=== PATIENT | female | born 2000 | race Two or more races ===

== ENCOUNTER 2021-08-24 11:57 | Emergency (ER) | payer MEDICAID, OTHER ==
[~2021-08-24] VITALS: Ht 160 cm; Wt 45.4 kg
[2021-08-24] MEDS ORDERED: SODIUM CHLORIDE 0.9% 1,000 ML IV ONE (12:15)
[2021-08-24 13:20] LABS: Hematocrit 38.4 % (36.0-46.0); Hemoglobin 13.4 g/dL (12.2-16.2); Mean Corpuscular Hemoglobin 28.9 pg (28.0-32.0); Mean Corpuscular Hgb Conc. 34.8 g/dL (32.0-36.0); Mean Corpuscular Volume 83.1 fL (80.0-100.0); Red Blood Cells 4.62 10^6/uL (4.0-5.20); Red Cell Distribution Width 12.8 % (11.8-14.3); White Blood Cell 8.6 10^3/uL (4.4-10.8)
[2021-08-24 13:24] LABS: Band Neutrophils % (manual) 0; Basophils % (manual) 0 (0.0-2.0); Blast Cells 0; Eosinophils % (manual) 0 (0-7); Metamyelocytes % 0; Myelocytes % 0; Promyelocytes % 0; Reactive Lymphocytes 0
[2021-08-24 13:40] LABS: Albumin 3.8 g/dL (3.4-5.0); BUN/Creatinine Ratio 11.8; Calcium 8.5 mg/dL (8.5-10.1); Lymphocytes % (manual) 4 (10.0-50.0); Monocytes % (manual) 2 (0-12); Potassium 3.6 mmol/L (3.5-5.1)
[2021-08-24 13:44] LABS: Bilirubin, Total 0.6 mg/dL (0.2-1.0); Total Protein 7.3 g/dL (6.4-8.2)
[2021-08-24 14:33] LABS: Urine Bacteria NONE SEEN /hpf (None Seen); Urine Blood Negative /uL (Negative); Urine Mucus FEW (None Seen); Urine WBC 3 /hpf (0 - 5)
[2021-08-24 18:00] VITALS: BP 102/60
== END 2021-08-24 18:57 | disposition home or self-care (01) ==
LOC: EDBD 11:57 → ER 11:57
DX: R55 Syncope and collapse (principal)
CPT/HCPCS: 36415; 70450; 80053; 81001; 82962; 84484; 85007; 85027; 93005; 96360; 96361; 99285; J7030

== ENCOUNTER 2024-04-16 01:44 | Emergency (ER) | payer MEDICAID ==
[~2024-04-16] VITALS: Ht 160 cm; Wt 45.0 kg
--- NOTE | 2024-04-16 03:04 | ED.PDOC ---
Eye-HPI HPI Comments THIS IS A 23-YEAR-OLD FEMALE PRESENTS TO THE ED VIA EMS CHIEF COMPLAINT COLD- LIKE SYMPTOMS X2 HOURS. PATIENT COMPLAINING OF THROAT PAIN, THROAT SWELLING, NASAL DRAINAGE. SHE EXPRESSES CONCERNS ABOUT HER THROAT SWELLING. SHE DOES REPORT HISTORY OF ANXIETY HAS BEEN ON FLUOXETINE X4 MONTHS. SHE DOES FOLLOW UP WITH COGNITIVE BEHAVIORAL THERAPY WITH HER PSYCHOLOGIST. SHE DENIES CHEST PAIN, DIFFICULTY BREATHING, SHORTNESS OF BREATH, CHEST PAIN, FEVERS, OR CHILLS. Chief Complaint: Flu like Time Seen by MD: 02:34 Reviewed Notes: Nurses Notes, Biomass Plant Manager Notes, Medications, Allergies Allergies: Coded Allergies: No Known Drug Allergy (Verified Allergy, Unknown, 08/24/21) Mode of Arrival: Ambulatory Past Medical History PAST MEDICAL HISTORY: Anxiety, Denies Surgical History: Denies all surgeries FIRER PORTABLE BOILER History: No Pertinent FIRER PORTABLE BOILER History Social History Smoker: Non-Smoker Alcohol: Denies ETOH Use Drugs: Denies Drug Use Constitutional: denies: chills, diaphoresis, fatigue, fever, malaise, sweats, weakness, others EENTM: reports: nasal discharge, throat pain, throat swelling; denies: blurred vision, double vision, ear bleeding, ear discharge, ear drainage, ear pain, ear ringing, eye pain, eye redness, hearing loss, mouth pain, mouth swelling, nose bleeding, nose congestion, nose pain, photophobia, tearing, voice changes, others Respiratory: denies: cough, hemoptysis, orthopnea, SOB at rest, shortness of breath, SOB with excertion, stridor, wheezing, others Cardiovascular: denies: chest pain, dizzy spells, diaphoresis, Dyspnea on exertion, edema, irregular heart beat, left arm pain, lightheadedness, palpitations, PND, syncope, others Gastrointestinal: denies: abdomen distended, abdominal pain, blood streaked bowels, constipated, diarrhea, dysphagia, difficulty swallowing, hematemesis, me rebeca, nausea, poor appetite, poor fluid intake, rectal bleeding, rectal pain, vomiting, others Genitourinary: denies: abnormal vagina bleeding, burning, dyspareunia, dysuria, flank pain, frequency, hematuria, incontinence, pain, , vagina discharge, urgency, others Neurological: denies: dizziness, fainting, headache, left sided numbness, left sided weakness, numbness, paresthesia, pre-existing deficit, right sided numbness, right sided weakness, seizure, speech problems, tingling, tremors, weakness, others Musculoskeletal: denies: back pain, gout, joint pain, joint swelling, muscle pain, muscle stiffness, neck pain, others Integumetry: denies: bruises, change in color, change in hair/nails, dryness, laceration, lesions, lumps, rash, wounds, others Allergic/Immunocompromised: denies: Difficulty Healing, Frequent Infections, Hives, Itching, others Hematologic/Lymphatic: denies: anemia, blood clots, easy bleeding, easy bruising, swollen glands, others Endocrine: denies: excessive hunger, excessive sweating, excessive thirst, excessive urination, flushing, intolerance to cold, intolerance to heat, unexplained weight gain, unexplained weight loss, others Psychiatric: denies: anxiety, bipolar disorder, depression, hopeless, panic disorder, schizophrenia, sleepless, suicidal, others Physical Exam General Appearance: No Apparent Distress, Normal HEENT: Normal ENT Inspection, Pharynx Normal, TMs Normal Neck: Full Range of Motion, Non-Tender Respiratory: Lungs Clear, No Accessory Muscle Use, No Respiratory Distress, Normal Breath Sounds Cardiovascular: No Murmur, Normal Peripheral Pulses, Regular Rate/Rhythm Breast Exam: Deferred Gastrointestinal: Non Tender, Soft Genitalia: Deferred Pelvic: Deferred Rectal: Deferred Extremities: Normal range of motion Musculoskeletal : Apperance: Normal Neurologic: Alert, ground hand II-XII nml as Tested, No Motor Deficits, Normal Affect, Normal Mood, No Sensory Deficits Cerebellar Function: Normal Reflexes: Normal Skin: Dry, Normal Color, Warm Lymphatic: No Adenopathy Was a procedure done? Was a procedure done?: No EENT DIFF Eye: N/A Sore Throat: Viral Pharyngitis X-Ray, Labs, Meds, VS Vital Signs Date Time Temp Pulse Resp B/P (MAP) Pulse Ox O2 Delivery O2 Flow Rate FiO2 04/16/24 01:44 99.2 94 20 113/73 (86) 99 X-Ray, Labs, Meds, VS Comment LIKELY ACUTE NASAL PHARYNGITIS. ADVISED ON [id number] RELIEF MEASURES. ADVISED TO FOLLOW UP WITH PCP IN 2-3 DAYS NECESSARY. ADVISED TO RETURN TO THE ER FOR DIFFICULTY BREATHING, SHORTNESS OF BREATH DIFFICULTY SWALLOWING, HIGH FEVERS OR ANY CONCERNING SYMPTOMS. PATIENT AGREES WITH DISCHARGE PLAN OF CARE. Time of 1ST Reevaluation: 03:04 Reevaluation 1ST: Improved Patient Education/Counseling: Diagnosis, Treatment, Prognosis, Need For Follow Up Family Education/Counseling: No Family Present Departure 1 Departure Time of Disposition: 03:04 Impression: Primary Impression: Acute nasopharyngitis [common cold] Disposition: 01 HOME / SELF CARE / HOMELESS Condition: Stable Discharged With: Self Critical Care Note Critical Care Time?: No Stability Stability form required: GEMINI Blank Apr 16, 2024 03:04
[2024-04-16 03:15] VITALS: BP 100/63; PULSE 88; RESP 17; TEMP 98.7; O2SAT 99
== END 2024-04-16 03:04 | disposition home or self-care (01) ==
LOC: EDBD 01:44 → ER 01:44
DX: J00 Acute nasopharyngitis [common cold] (principal); F41.9 Anxiety disorder, unspecified

== ENCOUNTER 2024-05-18 14:51 | Emergency (ER) | payer SELFPAY ==
[~2024-05-18] VITALS: Ht 160 cm; Wt 45.7 kg
--- NOTE | 2024-05-18 15:51 | ECG ---
[facility] Test Date: 2024-05-18 Test Time: 15:10:41 Pat Name: VANNESSA PIZANO Department: ER Room: Gender: F Naturopathic Physician: OB : 2000 Requested By: CASEY PEREYRA Order Number: [id number] Reading MD: James Ponce Measurements Intervals [place] Rate: 127 P: 81 DE: 123 QRS: 76 QRSD: 91 T: -24 QT: 267 QTc: 389 Interpretive Statements Sinus tachycardia RSR' in V1 or V2, right VCD or RVH Borderline T abnormalities, diffuse leads Artifact in lead(s) I,III,aVR,aVL,aVF,V1 Electronically Signed On 05-25-2024 9:47:11 PST by James Ponce Please click the below link to view image of tracing.
[2024-05-18 15:54] LABS: Basophils # (auto) 0 10 ^3/uL (0-0.2); Basophils % (auto) 0.3 % (0.0-2.0); Eosinophils # (auto) 0 10 ^3/uL (0-0.8); Eosinophils % (auto) 0.9 % (0.0-7.0); Hematocrit 40.9 % (36.0-46.0); Hemoglobin 14.1 g/dL (12.2-16.2); Lymphocytes # (auto) 0.6 10 ^3/uL (0.4-5.4); Lymphocytes % (auto) 10.9 % (10.0-50.0); Mean Corpuscular Hemoglobin 29.3 pg (28.0-32.0); Mean Corpuscular Hgb Conc. 34.4 g/dL (32.0-36.0); Mean Corpuscular Volume 85.1 fL (80.0-100.0); Monocytes # (auto) 0.5 10 ^3/uL (0-1.3); Monocytes % (auto) 10.4 % (0.0-12.0); Neutrophils % (auto) 77.5 % (37.0-80.0); Platelet Count (auto) 185 10^3/uL (140-450); Red Blood Cells 4.81 10^6/uL (4.0-5.20); Red Cell Distribution Width 12.7 % (11.8-14.3); White Blood Cell 5.2 10^3/uL (4.4-10.8)
[2024-05-18] MEDS: SODIUM CHLORIDE 0.9% 2,000 ML IV ONE (15:56)
[2024-05-18] MEDS: ACETAMINOPHEN 500 MG TAB or CAP PO ONE (16:00)
[2024-05-18 16:04] LABS: Chloride 104 mmol/L (98-107); Sodium 137 mmol/L (136-145)
[2024-05-18 16:05] LABS: Calcium 9.7 mg/dL (8.7-10.4); Carbon Dioxide 26 mmol/L (20-31)
[2024-05-18 16:06] VITALS: RESP 18; O2SAT 96
[2024-05-18] MEDS: ACETAMINOPHEN 325 MG TAB PO ONE (16:08)
[2024-05-18 16:10] LABS: BUN/Creatinine Ratio 8.9 (10.0-20.0); Glucose 98 mg/dL (74-106)
[2024-05-18 16:19] LABS: Blood Urea Nitrogen 9 mg/dL (9-23)
[2024-05-18 16:21] LABS: Potassium 3.4 mmol/L (3.5-5.1)
[2024-05-18 16:43] LABS: COVID19 ANTIGEN SOFIA FIA NEGATIVE (NEGATIVE)
[2024-05-18 16:44] LABS: Rapid Influenza B Negative (Negative)
[2024-05-18 16:59] LABS: Rapid Influenza A Positive (Negative)
--- NOTE | 2024-05-18 17:05 | ED.PDOC ---
History of Present Illness HPI Comments 24 y.o female presents to the ED for a chief complaint of a productive cough associated with yellow phlegm, body aches, headaches, chills, and fever that presented 3 days ago. Patient tested herself for Covid 19 at home today which resulted negative. Patient mentions history of syncopal episodes, states she had an episode of abdominal pain which caused her to lose consciousness but states pain has now resolved. She current late complains of central pleuritic chest discomfort. No other symptoms or pain reported. Chief Complaint: Flu like Time Seen by MD: 16:55 Primary Care Provider: NONE Reviewed Notes: Nurses Notes, Medications, Allergies Allergies: Coded Allergies: No Known Drug Allergy (Verified Allergy, Unknown, 08/24/21) Home Meds Active Scripts Guaifenesin (Mucinex) 600 Mg Tab, 1 TAB PO BID PRN, #20 TAB prn cough/congestion Prov:CASEY TOWNSEND MD 05/18/24 Ibuprofen Micronized (Ibuprofen) 600 Mg Tab, 600 MG PO Q6HP PRN, #30 TAB prn fever or pain Prov:CASEY TOWNSEND MD 05/18/24 Acetaminophen (Tylenol Extra Strength) 500 Mg Tab, 1000 MG PO Q6HP PRN, #30 TAB prn fever or pain Prov:CASEY TOWNSEND MD 05/18/24 Oseltamivir Phosphate (Tamiflu) 75 Mg Cap, 75 MG PO BID for 5 Days, #10 CAP Prov:CASEY TOWNSEND MD 05/18/24 Information Source: Patient Mode of Arrival: Ambulatory Severity: Moderate Timing: Days (3) Duration: Since onset Past Medical History PAST MEDICAL HISTORY: Anxiety Past Medical History (Other): Syncope Surgical History: Denies all surgeries SSIS ARCHITECT History: No Pertinent SSIS ARCHITECT History Social History Smoker: Non-Smoker Alcohol: Denies ETOH Use Drugs: Denies Drug Use Lives In: Home Constitutional: reports: chills, fever; denies: diaphoresis, fatigue, malaise, sweats, weakness, others EENTM: denies: blurred vision, double vision, ear bleeding, ear discharge, ear drainage, ear pain, ear ringing, eye pain, eye redness, hearing loss, mouth pain, mouth swelling, nasal discharge, nose bleeding, nose congestion, nose pain, photophobia, tearing, throat pain, throat swelling, voice changes, others Respiratory: reports: cough; denies: hemoptysis, orthopnea, SOB at rest, shortness of breath, SOB with excertion, stridor, wheezing, others Cardiovascular: reports: chest pain, syncope; denies: dizzy spells, di aphoresis, Dyspnea on exertion, edema, irregular heart beat, left arm pain, lightheadedness, palpitations, PND, others Gastrointestinal: denies: abdomen distended, abdominal pain, blood streaked bowels, constipated, diarrhea, dysphagia, difficulty swallowing, hematemesis, melena, nausea, poor appetite, poor fluid intake, rectal bleeding, rectal pain, vomiting, others Genitourinary: denies: abnormal vagina bleeding, burning, dyspareunia, dysuria, flank pain, frequency, hematuria, incontinence, pain, , vagina discharge, urgency, others Neurological: reports: headache; denies: dizziness, fainting, left sided numbness, left sided weakness, numbness, paresthesia, pre-existing deficit, right sided numbness, right sided weakness, seizure, speech problems, tingling, tremors, weakness, others Musculoskeletal: reports: muscle pain; denies: back pain, gout, joint pain, joint swelling, muscle stiffness, neck pain, others Integumetry: denies: bruises, change in color, change in hair/nails, dryness, laceration, lesions, lumps, rash, wounds, others Allergic/Immunocompromised: denies: Difficulty Healing, Frequent Infections, Hives, Itching, others Hematologic/Lymphatic: denies: anemia, blood clots, easy bleeding, easy bruising, swollen glands, others Endocrine: denies: excessive hunger, excessive sweating, excessive thirst, excessive urination, flushing, intolerance to cold, intolerance to heat, unexplained weight gain, unexplained weight loss, others Psychiatric: denies: anxiety, bipolar disorder, depression, hopeless, panic disorder, schizophrenia, sleepless, suicidal, others All Other Systems: Reviewed and Negative Physical Exam General Appearance: No Apparent Distress HEENT: Normal ENT Inspection Neck: Full Range of Motion, Normal Inspection Respiratory: Lungs Clear, No Accessory Muscle Use, No Respiratory Distress, Normal Breath Sounds, Other (Productive sounding cough) Cardiovascular: No Edema, No JVD, Regular Rate/Rhythm Breast Exam: Deferred Gastrointestinal: Non Tender, Soft Genitalia: Deferred Pelvic: Deferred Rectal: Deferred Extremities: Normal inspection, Normal range of motion, Non-tender, No pedal edema Neurologic: Alert (Oriented x4), Normal Affect, Normal Mood, Other (Ambulatory without difficulty. No gross focal deficit.) Cerebellar Function: NOT DONE Reflexes: NOT DONE Skin: Dry, Normal Color, Warm Lymphatic: NOT DONE Was a procedure done? Was a procedure done?: No EKG EKG : Comments Sinus tach, rate 127, normal intervals, normal axis, possible incomplete right bundle-branch block, nonspecific T changes. Differential Dx Considerations may include: Vasovagal syncope, hypovolemia, CVA, TIA, arrhythmia, [place], Influenza, COVID, other Viral Syndrome, Dehydration, Electrolyte Imbalance, among others X-Ray, Labs, Meds, VS Vital Signs Date Time Temp Pulse Resp B/P (MAP) Pulse Ox O2 Delivery O2 Flow Rate FiO2 05/18/24 17:25 98.1 100 16 105/68 (80) 98 98.1 05/18/24 17:24 98.1 05/18/24 17:12 20 99 Room Air* 0 21 05/18/24 16:08 100.2 05/18/24 16:06 18 96 Room Air* 0 21 05/18/24 15:47 100.2 127 18 117/83 (94) 96 100.2 05/18/24 15:47 127 18 96 Room Air 05/18/24 14:59 99.9 120 16 117/77 (90) 97 Lab Test 05/18/24 16:50 05/18/24 15:45 05/18/24 15:37 05/18/24 15:13 Range/Units Troponin I High Sensitivity 4 6 </=34 ng/L Influenza Type A Antigen Positive Negative Influenza Type B Antigen Negative Negative SARS-CoV-2 Antigen (Rapid) Negative NEGATIVE White Blood Count 5.2 4.4-10.8 10^3/uL Red Blood Count 4.81 4.0-5.20 10^6/uL Hemoglobin 14.1 12.2-16.2 g/dL Hematocrit 40.9 36.0-46.0 % Mean Corpuscular Volume 85.1 80.0-100.0 fL Mean Corpuscular Hemoglobin 29.3 28.0-32.0 pg Mean Corpuscular Hemoglobin Concent 34.4 32.0-36.0 g/dL Red Cell Distribution Width 12.7 11.8-14.3 % Platelet Count 185 140-450 10^3/uL Mean Platelet Volume 7.6 6.9-10.8 fL Neutrophils (%) (Auto) 77.5 37.0-80.0 % Lymphocytes (%) (Auto) 10.9 10.0-50.0 % Monocytes (%) (Auto) 10.4 0.0-12.0 % Eosinophils (%) (Auto) 0.9 0.0-7.0 % Basophils (%) (Auto) 0.3 0.0-2.0 % Neutrophils # (Auto) 4.0 1.6-8.6 10 ^3/uL Lymphocytes # (Auto) 0.6 0.4-5.4 10 ^3/uL Monocytes # (Auto) 0.5 0-1.3 10 ^3/uL Eosinophils # (Auto) 0 0-0.8 10 ^3/uL Basophils # (Auto) 0 0-0.2 10 ^3/uL Nucleated Red Blood Cells 0.0 % Sodium Level 137 136-145 mmol/L Potassium Level 3.4 L 3.5-5.1 mmol/L Chloride Level 104 98-107 mmol/L Carbon Dioxide Level 26 20-31 mmol/L Anion Gap Pending Blood Urea Nitrogen 9 9-23 mg/dL Creatinine 1.01 0.550-1.02 mg/dL Glomerular Filtration Rate Calc 80 >90 mL/min BUN/Creatinine Ratio 8.9 L 10.0-20.0 Serum Glucose 98 74-106 mg/dL Calcium Level 9.7 8.7-10.4 mg/dL B-Type Natriuretic Peptide 16.53 0-100 pg/mL Beta HCG, Quantitative < 0.0 L 1.5-4.2 mIU/mL POC Glucose 98 70-106 mg/dl Test 05/18/24 15:00 Range/Units Urine Color Pending Urine Clarity Pending Urine pH Pending Urine Specific [place] Pending Urine Protein Pending Urine Ketones Pending Urine Blood Pending Urine Nitrite Pending Urine Bilirubin Pending Urine Urobilinogen Pending Urine Leukocyte Esterase Pending Urine RBC Pending Urine WBC Pending Urine Squamous Epithelial Cells Pending Urine Bacteria Pending Urine Glucose Pending Current Medications Medications (Trade) Dose Ordered Sig/Aaliyah Route Start Time Stop Time Status Last Admin Sodium Chloride 2,000 ml @ 1,000 mls/hr Q2H ONCE IV 05/18/24 15:30 05/18/24 17:29 DC 05/18/24 15:56 Acetaminophen (Tylenol Tablet) 1,000 mg ONCE ONCE PO 05/18/24 16:15 05/18/24 16:16 DC 05/18/24 16:08 Potassium Chloride (Klor-Con Tablet) 40 meq ONCE ONCE PO 05/18/24 17:00 05/18/24 17:01 DC 05/18/24 17:16 Albuterol (Ventolin Medneb) 2.5 mg ONCE ONCE NEB 05/18/24 17:15 05/18/24 17:16 DC 05/18/24 17:15 Ipratropium [place] (Atrovent Medneb) 0.5 mg ONCE ONCE NEB 05/18/24 17:15 05/18/24 17:16 DC 05/18/24 17:15 PROCEDURE(s): HWOCT - HEAD WITHOUT CONTRAST REASON: syncope ORDER NUMBER(s): [id number], ACCESSION NUMBER(s): [id number] EXAM: CT HEAD WITHOUT CONTRAST HISTORY: syncope COMPARISON: HEAD WITHOUT CONTRAST on DOS: 08/24/21 TECHNIQUE: Axial images of the head were obtained and reformatted in coronal and sagittal planes. All CT scans at this medical facility are performed using dose modulation techniques as appropriate to a performed exam including the following: Automated exposure control was utilized; adjustment of the MA and/or KV according to patient size; and use of iterative reconstruction technique. CT Dose: CTDI volume is 50.5 mGy. Dose-length product is 809.77 mGy*cm FINDINGS: There is no evidence of acute intracranial hemorrhage, mass, mass effect midline shift. There is no hydrocephalus or extra-axial fluid collection. Mclaughlin-white matter differentiation is maintained. There is streak artifact from bilateral ear piercing. The visualized paranasal sinuses and mastoid air cells are clear. The calvarium is intact. IMPRESSION: 1. No acute intracranial process. HS:Y EDURE(s): CXRP - CHEST PORTABLE REASON: syncope ORDER NUMBER(s): [id number], ACCESSION NUMBER(s): [id number] EXAM: XR Chest, 1 View CLINICAL INDICATION: syncope TECHNIQUE: Frontal view of the chest. COMPARISON: None FINDINGS: LUNGS AND PLEURAL SPACES: Unremarkable. No consolidation. No pneumothorax. HEART: Unremarkable. No cardiomegaly. MEDIASTINUM: Unremarkable. Normal mediastinal contour. BONES/JOINTS: Unremarkable. No acute fracture. OTHER FINDINGS: . . . IMPRESSION: No acute cardiopulmonary process. HS:Y X-Ray, Labs, Meds, VS Comment 24-year-old female with a history of syncopal episodes in the past and anxiety complaining of fever, body aches, cough, congestion and syncope Vitals remarkable for heart rate 120, temperature 100.2 Exam remarkable for tachycardia and productive sounding cough Rhythm strip independently interpreted by me: Sinus tach, rate 127, no ectopy. CT head unremarkable Chest x-ray unremarkable CBC unremarkable, basic metabolic panel remarkable for potassium 3.4, BNP, tr oponin and beta hCG unremarkable Influenza a positive, COVID negative Patient treated with the following in the ED: 2 L 0.9 normal saline IV bolus, Tylenol 1 g p.o., KCl 40 mEq p.o., albuterol 2.5 mg/Atrovent 0.5 mg nebulized On re-evaluation, patient is alert, resting comfortably with stable vitals. Patient is no longer tachycardic. Hospitalization was considered, however patient had rapid improvement of her symptoms with treatment in the ED, and I no longer feel hospitalization is necessary. Patient appears stable for outpatient treatment with close follow-up with her primary physician. I will prescribe Tamiflu and Mucinex. Time of 1ST Reevaluation: 18:00 Reevaluation 1ST: Unchanged Time of 2ND Reevaluation: 17:27 Reevaluation 2ND: Improved Patient Education/Counseling: Diagnosis, Treatment, Prognosis Family Education/Counseling: No Family Present Departure 1 Departure Time of Disposition: 17:27 Impression: Primary Impression: Influenza A Additional Impression: Syncope Qualified Codes: R55 - Syncope and collapse Disposition: HOME / SELF CARE / HOMELESS Condition: Stable Additional Instructions: Your blood tests including heart tests were unremarkable except for a slightly low potassium. Your chest x-ray and head CT were normal. We have replaced your potassium in the ER. Your flu test was positive for influenza A. I have prescribed Tamiflu, the treatment for influenza. I have also prescribed medication for your cough and for fever and pain. Follow-up with your primary doctor in 1-2 days. Drink plenty of fluids. e-Prescriptions Guaifenesin (Mucinex) 600 Mg Tab 1 TAB PO BID PRN, #20 TAB prn cough/congestion Prov: CASEY TOWNSEND MD 05/18/24 Ibuprofen Micronized (Ibuprofen) 600 Mg Tab 600 MG PO Q6HP PRN, #30 TAB prn fever or pain Prov: CASEY TOWNSEND MD 05/18/24 Acetaminophen (Tylenol Extra Strength) 500 Mg Tab 1000 MG PO Q6HP PRN, #30 TAB prn fever or pain Prov: CASEY TOWNSEND MD 05/18/24 Oseltamivir Phosphate (Tamiflu) 75 Mg Cap 75 MG PO BID for 5 Days, #10 CAP Prov: CASEY TOWNSEND MD 05/18/24 Discharged With: Relative Critical Care Note Critical Care Time?: No Stability Stability form required: No Heart Score Heart Score: Heart Score Response (Comments) Value History Slightly Suspicious 0 EKG Repolarization Disturb 1 Age <45 0 Risk Factors No known risk factors 0 Troponin Normal limit 0 Total 1 I personally scribed for CASEY TOWNSEND MD ([email or web address]) on 05/18/24 at 17:05. Electronically submitted by Jacqueline Priest ([facility]). CASEY TOWNSEND MD May 18, 2024 17:05
--- NOTE | 2024-05-18 17:05 | DVH ---
EXAM: CT HEAD WITHOUT CONTRAST HISTORY: syncope COMPARISON: HEAD WITHOUT CONTRAST on DOS: 08/24/21 TECHNIQUE: Axial images of the head were obtained and reformatted in coronal and sagittal planes. All CT scans at this medical facility are performed using dose modulation techniques as appropriate t o a performed exam including the following: Automated exposure control was utilized; adjustment of th e MA and/or KV according to patient size; and use of iterative reconstruction technique. CT Dose: CTDI volume is 50.5 mGy. Dose-length product is 809.77 mGy*cm FINDINGS: There is no evidence of acute intracranial hemorrhage, mass, mass effect midline shift. There is no h ydrocephalus or extra-axial fluid collection. Mclaughlin-white matter differentiation is maintained. There is streak artifact from bilateral ear piercing. The visualized paranasal sinuses and mastoid ai r cells are clear. The calvarium is intact. IMPRESSION: 1. No acute intracranial process. HS:Y
[2024-05-18] MEDS: ALBUTEROL SULF 2.5 MG/0.5ML(0.5%) NEB SOLN ONE (17:15)
[2024-05-18] MEDS: IPRATROPIUM BROM 0.5 MG/2.5ML INH SOL NEB ONE (17:15)
[2024-05-18] MEDS: ALBUTEROL SULF 2.5 MG/0.5ML(0.5%) NEB SOLN NEB ONE (17:15)
[2024-05-18] MEDS: IPRATROPIUM BROM 0.5 MG/2.5ML INH SOL ONE (17:15)
[2024-05-18] MEDS: POTASSIUM CHL 20 Meq TABLET PO ONE (17:16)
[2024-05-18 17:25] VITALS: BP 105/68; PULSE 100; RESP 16; TEMP 98.1; O2SAT 98
[2024-05-18] MEDS ORDERED: IBUP1TAB5 PO (17:31)
[2024-05-18] MEDS ORDERED: GUAI600T78 PO (17:31)
[2024-05-18] MEDS ORDERED: ACET-1304 PO (17:31)
[2024-05-18] MEDS ORDERED: OSEL75CA5 PO (17:31)
[2024-05-18 17:38] LABS: Urine Bacteria FEW /hpf (None Seen); Urine Blood Negative /uL (Negative); Urine Clarity Clear (Clear); Urine Color Light-Yellow (Yellow); Urine Protein, UAD Negative (Negative); Urine Specific Gravity 1.018 (1.001-1.035); Urine Urobilinogen Normal (Negative); Urine WBC 2 /hpf (0 - 5)
[2024-05-18 17:56] LABS: Anion Gap 7 (5-15)
== END 2024-05-18 17:55 | disposition home or self-care (01) ==
LOC: ER 14:51
DX: J10.1 Influenza due to other identified influenza virus with other respiratory manifestations (principal); R55 Syncope and collapse; F41.9 Anxiety disorder, unspecified; R06.02 Shortness of breath; Z20.822 Contact with and (suspected) exposure to COVID-19; Z79.899 Other long term (current) drug therapy
CPT/HCPCS: 36415; 70450; 71045; 80048; 81001; 82962; 83880; 84484; 84702; 85025; 87426; 87804; 93005; 94640; 96360; 99285; J7030

== ENCOUNTER 2024-08-18 19:32 | Emergency (ER) | payer SELFPAY ==
[~2024-08-18] VITALS: Ht 160 cm; Wt 45.5 kg
[~2024-08-18 19:32] MED LIST: ACET-1304 PO; GUAI600T78 PO; IBUP1TAB5 PO; OSEL75CA5 PO
[2024-08-18] MEDS ORDERED: KETOROLAC TROMETH 60MG/2ML VIAL IM ONE (22:15)
--- NOTE | 2024-08-18 22:32 | DVH ---
CLINICAL INDICATION: Trauma/twist TECHNIQUE: XY R FOOT 3 VIEW XRAY Comparison: None FINDINGS/IMPRESSION: Nondisplaced acute traumatic fracture of the right 5th metatarsal head. Soft tissues are unremarkable.
[2024-08-18 22:40] VITALS: BP 101/65; PULSE 87; RESP 18; TEMP 98.7; O2SAT 99
[2024-08-18] MEDS: HYDROcodone-ACET 10/325MG TAB PO ONE (22:57)
[2024-08-18] MEDS: IBUPROFEN 800 MG TAB PO ONE (22:58)
[2024-08-18] MEDS ORDERED: IBUP-1455 PO (23:13)
[2024-08-18] MEDS ORDERED: HYDR-4902 PO (23:13)
--- NOTE | 2024-08-18 23:14 | ED.PDOC ---
Musculoskeletal HPI Comments This patient is a lean 24-year-old female who arrives the ED today for evaluation of right foot pain concerns. Patient states she was at home earlier this evening when she attempted to get out of a chair and twisted her ankle and a blanket causing her to twist her ankle and fall. Patient states she is not able to ambulate on the foot. Patient denies any head trauma. No blood loss. Vital signs were stable on arrival. Chief Complaint: Lower Extremity Time Seen by MD: 20:19 Primary Care Provider: n/a Reviewed Notes: Nurses Notes Allergies: Coded Allergies: No Known Drug Allergy (Verified Allergy, Unknown, 08/24/21) Home Meds Active Scripts Guaifenesin (Mucinex) 600 Mg Tab, 1 TAB PO BID PRN, #20 TAB prn cough/congestion Prov:CASEY TOWNSEND MD 05/18/24 Ibuprofen Micronized (Ibuprofen) 600 Mg Tab, 600 MG PO Q6HP PRN, #30 TAB prn fever or pain Prov:CASEY TOWNSEND MD 05/18/24 Acetaminophen (Tylenol Extra Strength) 500 Mg Tab, 1000 MG PO Q6HP PRN, #30 TAB prn fever or pain Prov:CASEY TOWNSEND MD 05/18/24 Oseltamivir Phosphate (Tamiflu) 75 Mg Cap, 75 MG PO BID for 5 Days, #10 CAP Prov:CASEY TOWNSEND MD 05/18/24 Information Source: Patient, Friend Mode of Arrival: Wheelchair Location: Right Extremity Location: Foot Timing: Hours Prehospital treatment: Pain Meds Severity: Moderate Able to Move Extremity: Yes Bear Weight: No Pain: Moderate Hand Dominance: Right Mechanism: Twisting Circumstances: Fall Onset of Symptoms: After Trauma Symptoms: Swelling, Pain DVT Risk Factors: NONE Last Tetanus: UTD Past Medical History PAST MEDICAL HISTORY: Anxiety Surgical History: Denies all surgeries 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 SLATE CUTTER OPERATOR History Family History Family History: Reviewed,noncontributory to illness, No family hx of Cancer, No family hx of DM, No family hx of Heart wil, No family hx of HTN, No family hx ofKidney wil, No family hx of Liver wil, No family hx of Lung wil, No family hx of Stroke Social History Smoker: Non-Smoker Alcohol: Denies ETOH Use Drugs: Denies Drug Use Lives In: Home Constitutional: denies: chills, diaphoresis, fatigue, fever, malaise, sweats, weakness, others EENTM: denies: blurred vision, double vision, ear bleeding, ear discharge, ear drainage, ear pain, ear ringing, eye pain, eye redness, hearing loss, mouth pain, mouth swelling, nasal discharge, nose bleeding, nose congestion, nose pain, photophobia, tearing, throat pain, throat swelling, voice changes, others Respiratory: denies: cough, hemoptysis, orthopnea, SOB at rest, shortness of breath, SOB with excertion, stridor, wheezing, others Gastrointestinal: denies: abdomen distended, abdominal pain, blood streaked bowels, constipated, diarrhea, dysphagia, difficulty swallowing, hematemesis, melena, nausea, poor appetite, poor fluid intake, rectal bleeding, rectal pain, vomiting, others Genitourinary: denies: abnormal vagina bleeding, burning, dyspareunia, dysuria, flank pain, frequency, hematuria, incontinence, pain, , vagina discharge, urgency, others Neurological: denies: dizziness, fainting, headache, left sided numbness, left sided weakness, numbness, paresthesia, pre-existing deficit, right sided numbness, right sided weakness, seizure, speech problems, tingling, tremors, weakness, others Musculoskeletal: reports: others (Right foot pain); denies: back pain, gout, j oint pain, joint swelling, muscle pain, muscle stiffness, neck pain Integumetry: denies: bruises, change in color, change in hair/nails, dryness, laceration, lesions, lumps, rash, wounds, others Allergic/Immunocompromised: denies: Difficulty Healing, Frequent Infections, Hives, Itching, others Hematologic/Lymphatic: denies: anemia, blood clots, easy bleeding, easy bruising, swollen glands, others Endocrine: denies: excessive hunger, excessive sweating, excessive thirst, excessive urination, flushing, intolerance to cold, intolerance to heat, unex plained weight gain, unexplained weight loss, others Psychiatric: denies: anxiety, bipolar disorder, depression, hopeless, panic disorder, schizophrenia, sleepless, suicidal, others Physical Exam General Appearance: Moderate Distress (Due to right foot pain concerns), Thin HEENT: Normal ENT Inspection, Pharynx Normal, TMs Normal Neck: Full Range of Motion, Non-Tender, Normal, Normal Inspection Respiratory: Chest Non-Tender, Lungs Clear, No Accessory Muscle Use, No Respiratory Distress, Normal Breath Sounds Cardiovascular: No Edema, No JVD, No Murmur, No Gallop, Normal Peripheral Pulses, Regular Rate/Rhythm Breast Exam: Deferred Gastrointestinal: No Organomegaly, Non Tender, No Pulsatile Mass, Normal Bowel Sounds, Soft Genitalia: Deferred Pelvic: Deferred Rectal: Deferred Extremities: Other (Lateral aspect of the right foot reveals edema with ecchymosis and diffuse tenderness to palpation. No definitive crepitus noted. Patient can not bear weight.) Neurologic: Alert, No Motor Deficits, Normal Affect, Normal Mood, No Sensory Deficits Cerebellar Function: Normal Reflexes: Normal Skin: Dry, Normal Color, Warm Lymphatic: No Adenopathy Was a procedure done? Was a procedure done?: No Differential Diagnosis EXT Differential Diagnosis: Fracture, Sprain, Strain X-Ray, Labs, Meds, VS Vital Signs Date Time Temp Pulse Resp B/P (MAP) Pulse Ox O2 Delivery O2 Flow Rate FiO2 08/18/24 22:40 98.7 87 18 101/65 (77) 99 98.7 08/18/24 22:40 87 18 99 Room Air 08/18/24 19:48 98.7 80 18 96/55 (69) 99 98.7 Current Medications Medications (Trade) Dose Ordered Sig/Aaliyah Route Start Time Stop Time Status Last Admin Acetaminophen/ Hydrocodone Bitart ([place] 10/325MG Tab) 1 tab ONCE ONCE PO 08/18/24 22:15 08/18/24 22:16 DC 08/18/24 22:57 Ibuprofen (Motrin Tablet) 800 mg ONCE ONCE PO 08/18/24 22:45 08/18/24 22:46 DC 08/18/24 22:58 X-Ray, Labs, Meds, VS Comment All studies performed the ED were evaluated by me personally. Imaging studies of the right foot revealed a 5th metatarsal fracture. Patient was provided with a short posterior splint and crutches. Patient has been advised to follow up with the primary care provider next week for re-evaluation and probable cast placement. Time of 1ST Reevaluation: 23:11 Reevaluation 1ST: Improved Consultation: PCP Patient Education/Counseling: Diagnosis, Treatment Family Education/Counseling: Diagnosis, Treatment Departure 1 Departure Time of Disposition: 23:11 Impression: Primary Impression: Foot fracture, right Disposition: HOME / SELF CARE / HOMELESS Condition: Stable Additional Instructions: Advised patient utilize pain medication as needed for symptomatic relief. Patient will need to follow up with the primary care provider in the next five days for re-evaluation. If patient has difficulty securing a primary care provider visit, patient can contact this facility at phone number [phone] and asked for the facilities orthopedic department run by Dr. Simon for assistance with re-evaluation and cast placement. e-Prescriptions Hydrocodone-Acetaminophen (Hydrocodone Bitartrate/AC 5-325 mg) 1 Tab Tab 1 TAB PO Q6HP PRN, #20 TAB Prov: JULIA BROWN PAC 08/18/24 Ibuprofen Micronized (Ibuprofen) 800 Mg Tab 800 MG PO Q8HP PRN, #20 TAB Prov: JULIA BROWN PAC 08/18/24 Discharged With: Self, Friend Critical Care Note Critical Care Time?: No Stability Stability form required: No Heart Score Heart Score: Heart Score Response (Comments) Value History N/A 0 EKG N/A 0 Age N/A 0 Risk Factors N/A 0 Troponin N/A 0 Total 0 JULIA BROWN PAC Aug 18, 2024 23:14
== END 2024-08-18 23:47 | disposition home or self-care (01) ==
LOC: ER 19:39
DX: S92.811A Other fracture of right foot, initial encounter for closed fracture (principal); F41.9 Anxiety disorder, unspecified; Z79.899 Other long term (current) drug therapy; X50.1XXA Overexertion from prolonged static or awkward postures, initial encounter; Y93.89 Activity, other specified; Y92.89 Other specified places as the place of occurrence of the external cause; Y99.8 Other external cause status
CPT/HCPCS: 29515; 73630

== ENCOUNTER 2024-09-03 19:31 | Emergency (ER) | payer SELFPAY ==
[~2024-09-03] VITALS: Ht 160 cm; Wt 45.9 kg
[~2024-09-03 19:31] MED LIST changes: +HYDR-4902 PO; +IBUP-1455 PO
--- NOTE | 2024-09-03 22:23 | ED.PDOC ---
Back pain HPI HPI Comments 24 y.o female presents to the ED for a chief complaint of right foot pain. Patient reports on 08/20/24 she was diagnosed with a metatarsal fracture, prescribed ibuprofen and [place] in which she took and finished but states now pain is persistent and wants it reevaluated. Patient reports she has not followed up with PCP or orthopedic. Patient describes pain as sharp, worse on palpation and rating a 10/10 on the pain scale. No associating symptoms Right foot is splinted from previous visit here Chief Complaint: Lower Extremity Time Seen by MD: 19:55 Primary Care Provider: n/a Reviewed Notes: Nurses Notes, Medications, Allergies Allergies: Coded Allergies: No Known Drug Allergy (Verified Allergy, Unknown, 08/24/21) Home Meds Active Scripts Meloxicam (Meloxicam) 15 Mg Tab, 1 TAB PO DAILY PRN for 7 Days, #7 TAB 2 Refills Prov:GEMINI VIEYRA FLUME MAKER 09/03/24 Hydrocodone-Acetaminophen (Hydrocodone Bitartrate/AC 5-325 mg) 1 Tab Tab, 1 TAB PO Q6HP PRN, #20 TAB Prov:JULIA BROWN PAC 08/18/24 Ibuprofen Micronized (Ibuprofen) 800 Mg Tab, 800 MG PO Q8HP PRN, #20 TAB Prov:JULIA BROWN PAC 08/18/24 Guaifenesin (Mucinex) 600 Mg Tab, 1 TAB PO BID PRN, #20 TAB prn cough/congestion Prov:CASEY TOWNSEND MD 05/18/24 Ibuprofen Micronized (Ibuprofen) 600 Mg Tab, 600 MG PO Q6HP PRN, #30 TAB prn fever or pain Prov:CASEY TOWNSEND MD 05/18/24 Acetaminophen (Tylenol Extra Strength) 500 Mg Tab, 1000 MG PO Q6HP PRN, #30 TAB prn fever or pain Prov:CASEY TOWNSEND MD 05/18/24 Oseltamivir Phosphate (Tamiflu) 75 Mg Cap, 75 MG PO BID for 5 Days, #10 CAP Prov:CASEY TOWNSEND MD 05/18/24 Information Source: Patient Mode of Arrival: crutches Timing: Hours Severity: Moderate Quality: Sharp Onset: Blunt Trauma Circumstance: Other Modifying Factors: Nothing Associated signs and symptoms: Other Past Medical History PAST MEDICAL HISTORY: Anxiety Surgical History: Denies all surgeries 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: No 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 Family History Family History: Reviewed,noncontributory to illness, No family hx of Cancer, No family hx of DM, No family hx of Heart wil, No family hx of HTN, No family hx ofKidney wil, No family hx of Liver wil, No family hx of Lung wil, No family hx of Stroke Social History Smoker: Non-Smoker Alcohol: Denies ETOH Use Drugs: Denies Drug Use Lives In: Home Constitutional: denies: chills, diaphoresis, fatigue, fever, malaise, sweats, weakness, others EENTM: denies: blurred vision, double vision, ear bleeding, ear discharge, ear drainage, ear pain, ear ringing, eye pain, eye redness, hearing loss, mouth pain, mouth swelling, nasal discharge, nose bleeding, nose congestion, nose pain, photophobia, tearing, throat pain, throat swelling, voice changes, others Respiratory: denies: cough, hemoptysis, orthopnea, SOB at rest, shortness of breath, SOB with excertion, stridor, wheezing, others Cardiovascular: denies: chest pain, dizzy spells, diaphoresis, Dyspnea on exertion, edema, irregular heart beat, left arm pain, lightheadedness, palpitations, PND, syncope, others Gastrointestinal: denies: abdomen distended, abdominal pain, blood streaked bowels, constipated, diarrhea, dysphagia, difficulty swallowing, hematemesis, melena, nausea, poor appetite, poor fluid intake, rectal bleeding, rectal pain, vomiting, others Genitourinary: denies: abnormal vagina bleeding, burning, dyspareunia, dysuria, flank pain, frequency, hematuria, incontinence, pain, , vagina discharge, urgency, others Neurological: denies: dizziness, fainting, headache, left sided numbness, left sided weakness, numbness, paresthesia, pre-existing deficit, right sided numbness, right sided weakness, seizure, speech problems, tingling, tremors, weakness, others Musculoskeletal: reports: others (right foot pain ); denies: back pain, gout, joint pain, joint swelling, muscle pain, muscle stiffness, neck pain Integumetry: denies: bruises, change in color, change in hair/nails, dryness, laceration, lesions, lumps, rash, wounds, others Allergic/Immunocompromised: denies: Difficulty Healing, Frequent Infections, Hives, Itching, others Hematologic/Lymphatic: denies: anemia, blood clots, easy bleeding, easy bruising, swollen glands, others Endocrine: denies: excessive hunger, excessive sweating, excessive thirst, excessive urination, flushing, intolerance to cold, intolerance to heat, unexplained weight gain, unexplained weight loss, others Psychiatric: denies: anxiety, bipolar disorder, depression, hopeless, panic disorder, schizophrenia, sleepless, suicidal, others All Other Systems: Reviewed and Negative Physical Exam General Appearance: Mild Distress, Normal HEENT: Normal ENT Inspection, Pharynx Normal, TMs Normal Neck: Full Range of Motion, Non-Tender, Normal, Normal Inspection Respiratory: Chest Non-Tender, Lungs Clear, No Accessory Muscle Use, No Respiratory Distress, Normal Breath Sounds Cardiovascular: No Edema, No JVD, No Murmur, No Gallop, Normal Peripheral Pulses, Regular Rate/Rhythm Breast Exam: Deferred Gastrointestinal: No Organomegaly, Non Tender, No Pulsatile Mass, Normal Bowel Sounds, Soft Genitalia: Deferred Pelvic: Deferred Rectal: Deferred Extremities: No calf tenderness, Normal capillary refill, Normal inspection, Normal range of motion, Non-tender, No pedal edema Musculoskeletal : Location: Right Extremity Location: Foot Apperance: Tenderness: Moderate Neurologic: Alert, teenage babysitter II-XII nml as Tested, No Motor Deficits, Normal Affect, Normal Mood, No Sensory Deficits Cerebellar Function: Normal Reflexes: Normal Skin: Dry, Normal Color, Warm Lymphatic: No Adenopathy Was a procedure done? Was a procedure done?: No Back Pain Differential Dx Differential Diagnosis: Fracture, Musculoskeletal Pain, Strain X-Ray, Labs, Meds, VS Vital Signs Date Time Temp Pulse Resp B/P (MAP) Pulse Ox O2 Delivery O2 Flow Rate FiO2 09/03/24 22:35 98.4 79 17 117/70 (86) 99 98.4 09/03/24 22:35 79 17 99 Room Air 09/03/24 20:00 98.5 84 18 107/63 (78) 99 98.5 Current Medications Medications (Trade) Dose Ordered Sig/Aaliyah Route Start Time Stop Time Status Last Admin Oxycodone/ Acetaminophen (Percocet 5/ 325MG Tablet) 1 tab ONCE ONCE PO 09/03/24 22:30 09/03/24 22:31 DC 09/03/24 23:49 X-Ray, Labs, Meds, VS Comment RIGHT FOOT X-RAY SHOWS NO CHANGES FRACTURE MILDLY DISPLACED. PATIENT GIVEN PERCOCET 5 MG P.O. NOTES IMPROVEMENT IN PAIN AND FUNCTION REQUESTING DISCHARGE AT THIS TIME. SCRIPT MELOXICAM. ADVISED PATIENT ON THE IMPORTANCE TO FOLLOW UP WITH ORTHO OR PCP IF SHE NEEDS A REFERRAL. ADVISED ON RICE. ADVISED TAKE MEDICATIONS PRESCRIBED SIDE EFFECTS DISCUSSED. ER RETURN PRECAUTIONS GIVEN PATIENT INDICATES UNDERSTANDING AND AGREES WITH DISCHARGE PLAN OF CARE. Time of 1ST Reevaluation: 22:23 Reevaluation 1ST: Unchanged Time of 2ND Reevaluation: 23:52 Reevaluation 2ND: Improved Patient Education/Counseling: Diagnosis, Treatment, Prognosis Family Education/Counseling: No Family Present Departure 1 Departure Time of Disposition: 23:39 Impression: Primary Impression: Foot fracture, right Qualified Codes: S92.901A - Unspecified fracture of right foot, initial encounter for closed fracture Disposition: HOME / SELF CARE / HOMELESS Condition: Stable e-Prescriptions Meloxicam (Meloxicam) 15 Mg Tab 1 TAB PO DAILY PRN for 7 Days, #7 TAB 2 Refills Prov: GEMINI VIEYRA 09/03/24 Discharged With: Self Critical Care Note Critical Care Time?: No Stability Stability form required: No Heart Score Heart Score: Heart Score Response (Comments) Value History N/A 0 EKG N/A 0 Age N/A 0 Risk Factors N/A 0 Troponin N/A 0 Total 0 I personally scribed for JOE GALDAMEZ MD ([email or web address]) on 09/03/24 at 22:26. Electronically submitted by Jacqueline Priest ([facility]). GEMINI VIEYRA Sep 03, 2024 22:23 JOE GALDAMEZ MD Sep 03, 2024 22:26
[2024-09-03] MEDS: KETOROLAC TROMETH 60MG/2ML VIAL IM ONE (22:30)
[2024-09-03 22:35] VITALS: BP 117/70; PULSE 79; RESP 17; TEMP 98.4; O2SAT 99
--- NOTE | 2024-09-03 23:23 | DVH ---
XY R FOOT 3 VIEW XRAY, INDICATION: FRACTURE INCREASE PAIN AND SWELLING TECHNICAL DATA: Frontal, oblique and lateral views were obtained of the right foot. COMPARISON: XY R FOOT 3 VIEW XRAY on DOS: 08/18/24 Findings/ IMPRESSION: Mild displaced fracture through the head of the 5th metatarsal.
[2024-09-03] MEDS ORDERED: MELO15TA29 PO (23:39)
[2024-09-03] MEDS: OXYCODONE W/ ACETAMINOPHEN 5/325MG TABLET PO ONE (23:49)
== END 2024-09-04 00:43 | disposition home or self-care (01) ==
LOC: ER 19:34
DX: S92.351A Displaced fracture of fifth metatarsal bone, right foot, initial encounter for closed fracture (principal); F41.9 Anxiety disorder, unspecified; Z79.899 Other long term (current) drug therapy; X58.XXXA Exposure to other specified factors, initial encounter; Y93.89 Activity, other specified; Y92.89 Other specified places as the place of occurrence of the external cause; Y99.8 Other external cause status
CPT/HCPCS: 73630